=== PATIENT | male | born 1945 | race Caucasian/White ===

== ENCOUNTER → 2024-07-15 11:21 | Outpatient (REF) | payer MEDICARE, OTHER, SELFPAY ==
[2024-07-15 12:58] LABS: % Basophils 0.4 % (0-2); % Eosinophils 2.4 % (0-6); % Immature Granulocytes 0.4 % (0-0.5); % Lymphocytes 23.1 % (20.5-51.1); % Monocytes 6.6 % (1.7-9.3); % Neutrophils 67.1 % (42.2-75.2); Absolute Eosinophils 0.1 10^3/uL (0-0.7); Absolute Lymphocytes 1.2 10^3/uL (1.2-3.4); Absolute Monocytes 0.4 10^3/uL (0.1-0.6); Absolute Neutrophils 3.6 10^3/uL (1.4-6.5); Hematocrit 44.5 % (39.0-52.0); Hemoglobin 14.6 g/dL (13.0-18.0); Mean Corp Hgb Conc. 32.8 g/dL (33.0-37.0); Mean Corpuscular Hgb 32.1 pg (27.0-31.0); Mean Corpuscular Volume 97.8 fL (80.0-94.0); Mean Platelet Volume 11.2 fL (7.4-10.4); Nucleated Red Blood Cells % 0 % (-); Platelet Count 143 10^3/uL (130-400); Red Blood Cell Count 4.55 10^6/uL (4.70-6.10); Red Cell Dist. Width 12.9 % (11.5-14.5); White Blood Cell Count 5.3 10^3/uL (4.8-10.8)
[2024-07-15 13:23] LABS: ALT (SGPT) 24 U/L (0-50); AST (SGOT) 26 U/L (17-59); Albumin 4.4 g/dl (3.5-5.0); Alkaline Phosphatase 113 U/L (38-126); Blood Urea Nitrogen 24 mg/dl (9-20); Calcium 9.1 mg/dl (8.4-10.2); Carbon Dioxide 27 mmol/L (22-30); Chloride 107 mmol/L (98-107); Glucose 107 mg/dl (70-99); HDL Cholesterol 55 mg/dl; LDL Cholesterol, Calculated 104 mg/dl; Potassium 4.2 mmol/L (3.5-5.1); Sodium 140 mmol/L (135-145); Total Cholesterol 190 mg/dl (50-199); Total Protein 6.5 g/dl (6.3-8.2); Triglyceride 155 mg/dl (10-149); Very Low Density Lipoprotein 31 mg/dl (0-30); eGFR > 60.00
[2024-07-15 13:40] LABS: Glycohemoglobin (HgbA1c) 5.5 % (4.0-5.6)
[2024-07-15 13:48] LABS: Creatine Phosphokinase 204 U/L (55-170)
[2024-07-15 15:17] LABS: C-Reactive Protein < 5.00 mg/L (0.0-10.00)
[2024-07-15 15:34] LABS: Vitamin D, 25-OH*** 24.6 ng/mL (30-80)
[2024-07-15 15:48] LABS: TSH 2.01 uIU/ml (0.47-4.68)
[2024-07-15 16:07] LABS: Vitamin B12 325 pg/ml (239-931)
== END ==
LOC: HWLAB 11:21
PROVIDERS: ATTENDING PHYSICIAN Family Medicine
DX: E78.5 Hyperlipidemia, unspecified (principal); M79.10 Myalgia, unspecified site; R73.9 Hyperglycemia, unspecified; E55.9 Vitamin D deficiency, unspecified; E53.8 Deficiency of other specified B group vitamins; E03.9 Hypothyroidism, unspecified
CPT/HCPCS: 36415; 80053; 80061; 82306; 82550; 82607; 83036; 84443; 85025; 86140

== ENCOUNTER → 2025-01-20 12:28 | Outpatient (REF) | payer MEDICARE, OTHER, SELFPAY ==
[2025-01-20 16:37] LABS: Hematocrit 43.1 % (39.0-52.0); Hemoglobin 14.2 g/dL (13.0-18.0); Mean Corp Hgb Conc. 32.9 g/dL (33.0-37.0); Mean Corpuscular Volume 99.3 fL (80.0-94.0); Nucleated Red Blood Cells % 0 % (-); Platelet Count 127 10^3/uL (130-400); Red Cell Dist. Width 13.0 % (11.5-14.5)
[2025-01-20 16:44] LABS: INR 1.04; PT 14.1 Sec (11.4-14.6)
[2025-01-20 16:45] LABS: APTT 29.4 Sec (23.4-35.0)
[2025-01-20 17:15] LABS: Blood Urea Nitrogen 16 mg/dl (9-20); Calcium 9.4 mg/dl (8.4-10.2); Carbon Dioxide 27 mmol/L (22-30); Chloride 109 mmol/L (98-107); Glucose 114 mg/dl (70-99); Potassium 4.5 mmol/L (3.5-5.1); Sodium 140 mmol/L (135-145); eGFR > 60.00
[2025-01-20 18:30] LABS: Urine Character Clear (Clear)
== END ==
LOC: HWLAB 12:28
PROVIDERS: ATTENDING PHYSICIAN Urology; FAMILY PHYSICIAN Family Medicine
DX: C67.4 Malignant neoplasm of posterior wall of bladder (principal); N39.0 Urinary tract infection, site not specified; N40.1 Benign prostatic hyperplasia with lower urinary tract symptoms; Z79.01 Long term (current) use of anticoagulants
CPT/HCPCS: 36415; 80048; 81003; 85025; 85610; 85730; 87086